=== PATIENT | female | born 1965 | race Caucasian/White ===

== ENCOUNTER 2016-07-22 19:09 | Emergency (ER) | payer OTHER ==
[~2016-07-22] VITALS: Ht 157.5 cm; Wt 74.8 kg
[2016-07-22 19:42] LABS: ABSOLUTE BASOPHIL COUNT 0.1 /CUMM (0.0-0.2); ABSOLUTE EOSINOPHIL COUNT 0.3 /CUMM (0.0-0.7); ABSOLUTE GRANULOCYTE CT 4.6 /CUMM (1.4-6.5); ABSOLUTE LYMPH COUNT 2.1 /CUMM (1.2-3.4); ABSOLUTE MONOCYTE COUNT 0.8 /CUMM (0.10-0.60); BASOPHIL % 0.8 % (0.0-2.0); EOSINOPHIL % 4.3 % (0-5); GRANULOCYTE % 58.5 % (42.2-75.2); HEMATOCRIT 42.9 % (37-47); MEAN CORPUSCULAR HGB 28.3 PG (27.0-31.0); MEAN CORPUSCULAR HGB CONC 33.2 G/DL (33.0-37.0); MEAN CORPUSCULAR VOLUME 85.1 FL (81.0-99.0); MEAN PLATELET VOLUME 8.8 FL (7.4-10.4); PLATELET COUNT 233 /CUMM (130-400); RBC DISTRIBUTION WIDTH 13.7 % (11.5-14.5); RED BLOOD CELL CT 5.04 /CUMM (4.20-5.40); WHITE BLOOD CELL COUNT 7.9 /CUMM (4.8-10.8)
--- NOTE | 2016-07-22 20:42 | ED GI/GU/ABDOMINAL COMPLAINT ---
History of Present Illness General Chief Complaint: Abdominal Pain/Flank Pain Stated Complaint: ABD PAIN Source: patient, family Exam Limitations: no limitations Vital Signs & Intake/Output Vital Signs & Intake/Output Vital Signs Date Time Temp Pulse Resp B/P Pulse O2 O2 Flow FiO2 Ox Delivery Rate 07/22 2138 96.6 76 18 123/73 99 Room Air 07/22 1918 97.8 83 18 162/93 96 Room Air ED Intake and Output 07/23 0000 07/22 1200 Intake Total 0 Output Total Balance 0 Intake, Oral 0 Patient 165 lb Weight Allergies Coded Allergies: No Known Allergies (07/22/16) Reconcile Medications Cyclobenzaprine HCl 10 MG TABLET 1 TAB PO QPM PRN muscle spasms Ibuprofen 800 MG TABLET 1 TAB PO TID PRN pain Triage Note: PT TO TRIAGE WITH C/O MIDDLE ABDOMINAL, RLQ, AND R FLANK BURNING PAIN, MILD NAUSEA x3DAYS. PT DENIES V/D, LAST BM THIS MORNING WNL. PT AFEBRILE IN TRIAGE, VSS. NO OTHER COMPLAINTS. Triage Nurses Notes Reviewed? yes ? n Is pt currently ? No Onset: Gradual Duration: day(s): (3) Timing: no prior history Quality/Severity: burning, sharpness Severity Numbers: 8 Location: right flank Radiation: RLQ Activities at Onset: none Prior Abdominal Problems: none Past Sexual History: Unobtainable at this time HPI: Patient is a 51-year-old female presenting to the emergency department with chief complaint of right flank pain and right samia-umbilical pain that started 3 days ago. She reports that the back pain has been constant but the abdominal pain has been coming and going. Pain is sharp and stabbing. Also feels burning in nature. Denies any rashes. Denies any nausea or vomiting. No decreased by mouth intake. Denies fevers or chills. No history kidney stones. Denies any urinary frequency or urgency or dysuria. No hematuria. Denies taking anything at home to help with symptoms. Nothing seems to make it better, palpation of the back makes it worse. Denies any heavy lifting or trauma. Denies chest pain. (RODOLFO MALAVE,CATHY) Past History Travel History Traveled to [place] past 21 day No Medical History Any Pertinent Medical History? see below for history Endocrine: hypothyroidism Surgical History Surgical History: non-contributory Psychosocial History What is your primary language Spanish Tobacco Use: Never used Family History Hx Contributory? No (CATHY CASAREZ) Review of Systems Review of Systems Constitutional: Reports: no symptoms. Comments Review of systems: See HPI, All other systems negative. Constitutional, no chills fever or weight loss HEENT: No visual changes no sore throat no congestion Cardiovascular: No chest pain ,palpitation , orthopnea or ankle swelling Skin, no jaundice no rashes Respiratory: No dyspnea cough sputum or hemoptysis GI: No nausea no vomiting : No dysuria No hematuria Muscle skeletal: , no neck pain, Neurologic: No numbness no confusion Psych: No stress anxiety or depression,. Heme/endocrine: No bruising no bleeding no polyuria or polydipsia Immunology: No splenectomy or history of AIDS (CATHY CASAREZ) Physical Exam Physical Exam General Appearance: well developed/nourished, no apparent distress, alert, awake , comfortable Gastrointestinal: normal bowel sounds, soft, tenderness Comments: Well-developed well-nourished person in no acute distress HEENT: Pupils equally round and reactive to light and accommodation. Nose is atraumatic. Neck: Normal inspection Back: Tender to palpation in the lumbar paraspinal muscle region. Full range of motion. Cardiovascular: Regular rate and rhythms no murmurs rubs or gallops, normal JVP Respiratory: Chest nontender. No respiratory distress.breath sounds clear to auscultation bilaterally Abdomen: Soft, tenderness to palpation in the right lower quadrant, no rebound or guarding, nondistended, no appreciable organomegaly. Normal bowel sounds. No ascites. 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 Extremity: No edema Neuro: Alert oriented x3 Skin: No appreciable rash on exposed skin, skin is warm and dry. Psych: Mood and affect is normal, memory and judgment is normal. Core Measures ACS in differential dx? Yes Severe Sepsis Present: No Septic Shock Present: No (CATHY CASAREZ) Progress Differential Diagnosis: UTI/pyelo, muscle strain, appendicitis, kidney stone, hydronephrosis Plan of Care: Orders Procedure Date/time Status URINALYSIS 07/22 2040 Complete TROPONIN LEVEL 07/22 1915 Complete LIPASE 07/22 1915 Complete HEPATIC FUNCTION PANEL 07/22 1915 Complete CBC WITHOUT DIFFERENTIAL 07/22 1915 Complete BASIC METABOLIC PANEL 07/22 1915 Complete AMYLASE 07/22 1915 Complete EKG 07/22 1915 Active Laboratory Tests 07/22/16 2100: Urine Color STRAW, Urine Clarity CLEAR, Urine pH 6.0, Ur Specific [place] 1.010, Urine Protein NEG, Urine Ketones NEG, Urine Nitrite NEG, Urine Bilirubin NEG, Urine Urobilinogen 0.2, Ur Leukocyte Esterase NEG, Ur Microscopic EXAM NOT REQUIRED, Urine Hemoglobin NEG, Urine Glucose NEG 07/22/16 1930: Anion Gap 11, Estimated GFR 58 L, BUN/Creatinine Ratio 19.0, Glucose 91, Calcium 9.3, Total Bilirubin 0.6, Direct Bilirubin 0.3, AST 21, ALT 38, Alkaline Phosphatase 74, Troponin I < 0.01, Total Protein 7.0, Albumin 4.2, Amylase 99, Lipase 259, CBC w Diff NO MAN DIFF REQ, RBC 5.04, MCV 85.1, MCH 28.3, RDW 13.7, MPV 8.8, Gran % 58.5, Lymphocytes % 26.7, Monocytes % 9.7 H, Eosinophils % 4.3, Basophils % 0.8, Absolute Granulocytes 4.6, Absolute Lymphocytes 2.1, Absolute Monocytes 0.8 H, Absolute Eosinophils 0.3, Absolute Basophils 0.1, PUBS MCHC 33.2 Diagnostic Imaging: Viewed by Me: CT Scan. Discussed w/RAD: CT Scan. Radiology Impression: PATIENT: PERFECTO RUGGIERO PRESENT AGE: 51 PATIENT ACCOUNT NO: [id number] : 63 LOCATION: [facility] ORDERING PHYSICIAN: CATHY MALAVE SERVICE DATE: 07/22/16 EXAM TYPE: CAT - CT ABD & PELVIS W/O IV CONTRAS EXAMINATION: CT ABDOMEN AND PELVIS WITHOUT CONTRAST CLINICAL INFORMATION: Right flank pain COMPARISON: None TECHNIQUE: Multidetector volumetric imaging was performed from the superior aspect of the liver through the pubic symphysis. Sagittal and coronal reformatted images were obtained on the technologist's workstation. DLP: 319.80 mGy-cm FINDINGS: LUNG BASES: The visualized lung bases are unremarkable. LIVER, GALLBLADDER, AND BILIARY TREE: The liver is normal in size, shape, and attenuation. No focal hepatic lesion or biliary ductal dilatation is present. The gallbladder is unremarkable with no evidence of radiopaque gallstones, gallbladder wall thickening, or obvious pericholecystic inflammatory changes. PANCREAS: Evaluation is limited without contrast. No discrete focal abnormality. SPLEEN: Unremarkable. ADRENAL GLANDS: Unremarkable. KIDNEYS AND URETERS: The kidneys are normal in size, shape, and attenuation. No hydronephrosis, hydroureter, or calculi seen. No perinephric stranding. BLADDER: Unremarkable. GASTROINTESTINAL TRACT: No acute bowel pathology. Appendix is not well visualized. However, no evidence of appendicitis. ABDOMINAL WALL: No significant hernia is appreciated. LYMPH NODES: Small mesenteric lymph nodes. No evidence of lymphadenopathy. VASCULAR: Unremarkable. PELVIC VISCERA: Unremarkable. OSSEOUS STRUCTURES: Mild degenerative changes. No acute osseous modality. IMPRESSION: 1. No evidence of renal stones or obstructive uropathy. 2. No acute intra-abdominal pathology. Initial ED EKG: NSR (67 bpm) Prior EKG: unchanged (no previous) Comments: On arrival patient is afebrile in no acute distress patient does have reproducible pain in the lumbar paraspinal region on the right. Mild right lower quadrant tenderness without rebound or guarding. Patient medicated with by mouth ibuprofen. She does not want an IV. She does not want any IM medications. Patient will go for CT to rule out kidney stone. Patient informed of all lab work results and imaging results. No signs of appendicitis or kidney stone. Patient will be treated for muscle strain. (CATHY CASAREZ) Departure Departure Time of Disposition: 2125 Disposition: HOME OR SELF CARE Condition: Stable Clinical Impression Primary Impression: Flank pain Referrals: COCO RUBALCAVA,GUERITA Milian (PCP/Family) Additional Instructions: Follow-up with your primary care physician call to make an appointment. Increase fluids. Take ibuprofen and flexeril as prescribed to help with pain. Apply warm compresses. Return for worsening symptoms or concerns. Keep a lookout for any developing rashes. Departure Forms: Customer Survey General Discharge Information Prescriptions: Current Visit Scripts Ibuprofen 1 TAB PO TID PRN pain #20 TAB Cyclobenzaprine HCl 1 TAB PO QPM PRN muscle spasms #10 TAB (CATHY CASAREZ) PA/CORRAL BOSS Co-Sign Statement Statement: ED Attending supervision documentation- [] I saw and evaluated the patient. I have also reviewed all the pertinent lab results and diagnostic results. I agree with the findings and the plan of care as documented in the PA's/CORRAL BOSS's documentation. [x] I have reviewed the ED Record and agree with the PA's/CORRAL BOSS's documentation. [] Additions or exceptions (if any) to the PAs/CORRAL BOSS's note and plan are summarized below: [] (MIKKI RUBALCAVA,KEVIN Guerra)
--- NOTE | 2016-07-22 21:25 | CT SCAN REPORT ---
EXAMINATION: CT ABDOMEN AND PELVIS WITHOUT CONTRAST CLINICAL INFORMATION: Right flank pain COMPARISON: None TECHNIQUE: Multidetector volumetric imaging was performed from the superior aspect of the liver through the pubic symphysis. Sagittal and coronal reformatted images were obtained on the technologist's workstation. DLP: 319.80 mGy-cm FINDINGS: LUNG BASES: The visualized lung bases are unremarkable. LIVER, GALLBLADDER, AND BILIARY TREE: The liver is normal in size, shape, and attenuation. No focal hepatic lesion or biliary ductal dilatation is present. The gallbladder is unremarkable with no evidence of radiopaque gallstones, gallbladder wall thickening, or obvious pericholecystic inflammatory changes. PANCREAS: Evaluation is limited without contrast. No discrete focal abnormality. SPLEEN: Unremarkable. ADRENAL GLANDS: Unremarkable. KIDNEYS AND URETERS: The kidneys are normal in size, shape, and attenuation. No hydronephrosis, hydroureter, or calculi seen. No perinephric stranding. BLADDER: Unremarkable. GASTROINTESTINAL TRACT: No acute bowel pathology. Appendix is not well visualized. However, no evidence of appendicitis. ABDOMINAL WALL: No significant hernia is appreciated. LYMPH NODES: Small mesenteric lymph nodes. No evidence of lymphadenopathy. VASCULAR: Unremarkable. PELVIC VISCERA: Unremarkable. OSSEOUS STRUCTURES: Mild degenerative changes. No acute osseous modality. IMPRESSION: 1. No evidence of renal stones or obstructive uropathy. 2. No acute intra-abdominal pathology.
[2016-07-22] MEDS ORDERED: IBUPROFEN800 M1 PO (21:31)
[2016-07-22] MEDS ORDERED: CYCLOBENZAPRINE10 M1 PO (21:31)
[2016-07-22 21:39] VITALS: BP 123/73
== END 2016-07-22 21:46 ==
LOC: ERH 19:09
PROVIDERS: Pediatrics
DX: R10.31 Right lower quadrant pain (principal)
CPT/HCPCS: 74176; 81003; 93005; 93010